=== PATIENT | male | born 1980 | race Caucasian/White ===

== ENCOUNTER 2017-06-26 05:19 | Observation (INO) | payer BC ==
[2017-06-26] MEDS ORDERED: cefTRIAXone 1 GM in Premix Bag 1 BAG IV ONE (05:20)
[2017-06-26] MEDS ORDERED: methylPREDNISolone Sodium Succinate 125 MG/2 ML SDV IVPUSH ONE (05:20)
--- NOTE | 2017-06-26 05:23 | EDM.PDOC ---
<Moris Thomas - Last Filed: 06/26/17 06:57> ED HPI GENERAL MEDICAL PROBLEM - General Stated Complaint: SWOLLEN UVULA Time Seen by Provider: 06/26/17 05:22 Source of Information: Reports: Patient - History of Present Illness INITIAL COMMENTS - FREE TEXT/NARRATIVE: HISTORY AND PHYSICAL: History of present illness: [ Patient arrives via EMS He has history of uvulitis in the past presents with complaint of swollen uvula EMS reports difficulty breathing however this is not exhibited while here in the emergency room airway appears patent however the patient is drooling unable to swallow his uvula is certainly inflamed and elongated. Patient is able to speak and answer questionnaire does not appear to be airway compromise no current fever the patient has vomited likely secondary to elongation of uvula stimulating gag reflex ] Review of systems: As per history of present illness and below otherwise all systems reviewed and negative. Past medical history: As per history of present illness and as reviewed below otherwise noncontributory. Surgical history: As per history of present illness and as reviewed below otherwise noncontributory. Social history: No reported history of drug or alcohol abuse. Family history: As per history of present illness and as reviewed below otherwise noncontributory. Physical exam: HEENT: Atraumatic, normocephalic, pupils reactive, negative for conjunctival pallor or scleral icterus, mucous membranes moist, throat clear, neck supple, nontender, trachea midline. Elongated uvula with inflammation and drooling Lungs: Clear to auscultation, breath sounds equal bilaterally, chest nontender. Heart: S1S2, regular, negative for clicks, rubs, or JVD. Abdomen: Soft, nondistended, nontender. Negative for masses or hepatosplenomegaly. Negative for costovertebral tenderness. Pelvis: Stable nontender. Genitourinary: Deferred. Rectal: Deferred. Extremities: Atraumatic, negative for cords or calf pain. Neurovascular unremarkable. Neuro: Awake, alert, oriented. Cranial nerves II through XII unremarkable. Cerebellum unremarkable. Motor and sensory unremarkable throughout. Exam nonfocal. Diagnostics: [CBC CMP UA CT soft tissue neck with contrast] Therapeutics: [Solu-Medrol 125 mg IV Rocephin 1 g IV] Patient will be signed out shift change with pending CT, lab is back essentially within normal limits, patient signed out to Dr. ramachandran for disposition and continued management Impression: [Uvulitis] Definitive disposition and diagnosis as appropriate pending reevaluation and review of above. - Related Data Allergies Allergy/AdvReac Type Severity Reaction Status Date / Time No Known Allergies Allergy Verified 06/26/17 05:36 Home Meds: Home Meds . [No Known Home Meds] 06/26/17 [History] Course - Vital Signs Last Recorded V/S: Last Vital Signs Temp 37.3 C 06/26/17 05:22 Pulse 103 H 06/26/17 06:50 Resp 20 06/26/17 06:50 BP 140/81 06/26/17 06:50 Pulse Ox 97 06/26/17 06:50 - Orders/Labs/Meds Orders: Active Orders 24 hr Category Date Time Status Soft Tissue Neck w Cont [CT] Stat Exams 06/26/17 05:21 Taken Sodium Chloride 0.9% [Normal Saline] 1,000 ml Med 06/26/17 05:30 Active IV STAT Medication Orders Sodium Chloride (Normal Saline) 1,000 mls @ 125 mls/hr IV STAT BRIGHT Last Admin: 06/26/17 05:24 Dose: 125 mls/hr Labs: Laboratory Tests 06/26/17 06/26/17 06/26/17 Range/Units 05:23 05:23 05:30 WBC 7.65 (4.0-11.0) K/uL RBC 5.28 (4.50-5.90) M/uL Hgb 15.8 (13.0-17.0) g/dL Hct 43.9 (38.0-50.0) % MCV 83.1 (80.0-98.0) fL MCH 29.9 (27.0-32.0) pg MCHC 36.0 (31.0-37.0) g/dL RDW Std Deviation 38.4 (28.0-62.0) fl RDW Coeff of Leslie 13 (11.0-15.0) % Plt Count 222 (150-400) K/uL MPV 9.50 (7.40-12.00) fL Neut % (Auto) 30.8 L (48.0-80.0) % Lymph % (Auto) 54.2 H (16.0-40.0) % Harrison % (Auto) 10.5 (0.0-15.0) % Eos % (Auto) 3.7 (0.0-7.0) % Baso % (Auto) 0.8 (0.0-1.5) % Neut # (Auto) 2.4 (1.4-5.7) K/uL Lymph # (Auto) 4.2 H (0.6-2.4) K/uL Harrison # (Auto) 0.8 (0.0-0.8) K/uL Eos # (Auto) 0.3 (0.0-0.7) K/uL Baso # (Auto) 0.1 (0.0-0.1) K/uL Nucleated RBC % 0.0 /100WBC Nucleated RBCs # 0 K/uL Sodium 141 (136-146) mmol/L Potassium 3.5 (3.5-5.1) mmol/L Chloride 109 (98-110) mmol/L Carbon Dioxide 20 L (21-31) mmol/L BUN 10 (6.0-23.0) mg/dL Creatinine 0.9 (0.6-1.5) mg/dL Est Cr Clr Drug Dosing 129.47 mL/min Estimated GFR (MDRD) > 60.0 ml/min Glucose 103 (60-110) mg/dL Calcium 9.4 (8.8-10.8) mg/dL Total Bilirubin 0.4 (0.1-1.5) mg/dL AST 33 (5-40) IU/L ALT 43 (8-54) IU/L Alkaline Phosphatase 77 (40-150) Total Protein 7.3 (6.0-8.0) g/dL Albumin 4.2 (3.5-5.0) g/dL Globulin 3.1 (2.0-3.5) g/dL Albumin/Globulin Ratio 1.4 (1.3-2.8) Urine Color YELLOW Urine Appearance CLEAR Urine pH 6.0 (5.0-8.0) Ur Specific [place] 1.020 (1.001-1.035) Urine Protein 30 (NEGATIVE) mg/dL Urine Glucose (UA) NEGATIVE (NEGATIVE) mg/dL Urine Ketones NEGATIVE (NEGATIVE) mg/dL Urine Occult Blood NEGATIVE (NEGATIVE) Urine Nitrite NEGATIVE (NEGATIVE) Urine Bilirubin NEGATIVE (NEGATIVE) Urine Urobilinogen 0.2 (<2.0) EU/dL Ur Leukocyte Esterase NEGATIVE (NEGATIVE) Urine RBC 0-2 (0-2/HPF) Urine WBC 0-2 (0-5/HPF) Ur Epithelial Cells RARE (NONE-FEW) Urine Bacteria RARE (NEGATIVE) Urine Mucus MODERATE (NONE-MOD) Meds: Medications Generic Name Dose Route Start Last Admin Trade Name Freq PRN Reason Stop Dose Admin Sodium Chloride 1,000 mls @ 125 mls/hr 06/26/17 05:30 06/26/17 05:24 Normal Saline IV 125 mls/hr STAT BRIGHT Administration Discontinued Medications Generic Name Dose Route Start Last Admin Trade Name Freq PRN Reason Stop Dose Admin Ceftriaxone Sodium/Dextrose 1 50 mls @ 100 mls/hr 06/26/17 05:20 06/26/17 05: 25 gm/ Premix IV 06/26/17 05:49 100 mls/hr ONETIME ONE Administration Iopamidol 200 ml 06/26/17 06:18 06/26/17 06:24 Isovue Multipack-370 (76%) IVPUSH 06/26/17 06:19 75 ml ONETIME STA Administration Methylprednisolone Sodium Succinate 125 mg 06/26/17 05:20 06/26/17 05:25 Solu-Medrol IVPUSH 06/26/17 05:21 125 mg ONETIME ONE Administration Departure - Departure Disposition: Home, Self-Care 01 Clinical Impression: Pneumonia, Uvulitis, Sinusitis - Discharge Information Referrals: Quinten Schneider MD [Primary Care Provider] - Additional Instructions: The following information is given to patients seen in the emergency department who are being discharged to home. This information is to outline your options for follow-up care. We provide all patients seen in our emergency department with a follow-up referral. The need for follow-up, as well as the timing and circumstances, are variable depending upon the specifics of your emergency department visit. If you don't have a primary care physician on staff, we will provide you with a referral. We always advise you to contact your personal physician following an emergency department visit to inform them of the circumstance of the visit and for follow-up with them and/or the need for any referrals to a consulting specialist. The emergency department will also refer you to a specialist when appropriate. This referral assures that you have the opportunity for followup care with a specialist. All of these measure are taken in an effort to provide you with optimal care, which includes your followup. Under all circumstances we always encourage you to contact your private physician who remains a resource for coordinating your care. When calling for followup care, please make the office aware that this follow-up is from your recent emergency room visit. If for any reason you are refused follow-up, please contact the [facility] emergency department at and asked to speak to the emergency department charge nurse. Augmentin is prescribed Motrin/Tylenol as directed push fluids follow primary medical doctor 1-2 days return as needed as discussed <Bib Ramachandran - Last Filed: 06/26/17 08:56> ED ROS GENERAL - Review of Systems Review Of Systems: ROS reveals no pertinent complaints other than HPI. ED EXAM, GENERAL - Physical Exam Exam: See Below (See dictation) Course - Vital Signs Text/Narrative:: Patient's emergency department course has been unremarkable CT demonstrates moderate amount of fluid and mucosal thickening in left maxillary sinus some mild groundglass opacity in the right upper lobe will be was enlarged with no evidence of abscess.Patient will be discharged on Augmentin be taking as prescribed with diagnosis of #1 sinusitis #2 pneumonia #30 uvulitis Departure - Departure Time of Disposition: 08:55 Condition: Good
[2017-06-26] MEDS: Sodium Chloride 0.9% 1,000 ML IV SCH ×3 (05:24→22:52)
[2017-06-26 05:54] LABS: CHLORIDE,CL 109 mmol/L (98-110); SODIUM,NA 141 mmol/L (136-146)
[2017-06-26] MEDS ORDERED: Iopamidol 755 MG/ML 200 ML Multipack Bottle IVPUSH STA (06:18)
[2017-06-26] MEDS ORDERED: Benzocaine 20% Topical Spray UD MUCMEM ONE ×2 (09:07→09:23)
[2017-06-26] MEDS ORDERED: Ondansetron 4 MG/2 ML SDV IVPUSH PRN (12:55)
--- NOTE | 2017-06-26 13:06 | PCM.HP ---
H&P History of Present Illness - General Admit Problem/Dx: Admission Diagnosis/Problem Admission Diagnosis/Problem Uvulitis - History of Present Illness Initial Comments - Free Text/Narative: 36 yo male who presents with one day history swollen uvula. He reports sinus congestion for past two weeks which had been clearing up. He woke up this morning and his uvula was swollen and laying on his tongue. It is causing him to spit and gag which is making swallowing difficult. He denies any shortness of breath or wheezing. He denies any allergies. He denies any fevers, sore throat or cough. In the ED he was noted to have a CT neck which reported enlarged uvula with suspected inflammatory prcess/uvulitis, airway is widely patent, Right upper lobe ground-glass opacities. - Related Data Allergies/Adverse Reactions: Allergies Allergy/AdvReac Type Severity Reaction Status Date / Time No Known Allergies Allergy Verified 06/26/17 05:36 Home Medications: Home Meds . [No Known Home Meds] 06/26/17 [History] Past Medical History - Past Health History Medical/Surgical History: Denies Medical/Surgical History HEENT History: Reports: None Cardiovascular History: Reports: None Respiratory History: Reports: None Gastrointestinal History: Reports: None Genitourinary History: Reports: None Musculoskeletal History: Reports: None Psychiatric History: Reports: None Endocrine/Metabolic History: Reports: None Hematologic History: Reports: None Oncologic (Cancer) History: Reports: None - Infectious Disease History Infectious Disease History: Reports: None Social & Family History - Family History Family Medical History: Noncontributory - Tobacco Use Smoking Status *Q: Never Smoker Second Hand Smoke Exposure: No - Caffeine Use Caffeine Use: Reports: None - Alcohol Use Days Per Week of Alcohol Use: 2 Number of Drinks Per Day: 1 Total Drinks Per Week: 2 Date of Last Drink: 06/25/17 Time of Last Drink: 21:00 - Recreational Drug Use Recreational Drug Use: No H&P Review of Systems - Review of Systems: Review Of Systems: ROS reveals no pertinent complaints other than HPI. Exam - Exam Exam: See Below - Vital Signs Vital Signs: Last Vital Signs Temp 37.3 C 06/26/17 05:22 Pulse 103 H 06/26/17 06:50 Resp 20 06/26/17 06:50 BP 140/81 06/26/17 06:50 Pulse Ox 97 06/26/17 06:50 Weight: 124.2 kg - Exam General: Alert, Oriented HEENT: Other (uvula enlarged sitting on back of tongue, no mass seen, no erythema or exudates, airway is patent) Lungs: Clear to Auscultation, Normal Respiratory Effort Cardiovascular: Regular Rate, Regular Rhythm GI/Abdominal Exam: Soft, Non-Tender Extremities: Non-Tender, No Pedal Edema Skin: Warm, Dry, Intact - Patient Data Result Diagrams: 06/27/17 06:11 06/27/17 06:11 Darwin Results Last 24 hrs: Microbiology 06/26/17 12:30 Group A Streptococcus Rapid Screen - Final Throat NEGATIVE STREP A SCREEN *Q Meaningful Use (ADM) - VTE *Q VTE Criteria *Q: - Stroke *Q Stroke Criteria *Q: - AMI *Q AMI Criteria *Q: Problem List Initiated/Reviewed/Updated: Yes Orders Last 24hrs: Active Orders 24 hr Category Date Time Status Antiembolic Devices [RC] PER UNIT ROUTINE Care 06/26/17 12:57 Ordered Oxygen Therapy [RC] PRN Care 06/26/17 12:55 Ordered Up ad Damaris [RC] ASDIRECTED Care 06/26/17 12:55 Ordered VTE/DVT Education [RC] PER UNIT ROUTINE Care 06/26/17 12:55 Ordered Vital Signs [RC] Q4H Care 06/26/17 12:55 Ordered Clear Liquid Diet [DIET] Diet 06/26/17 Breakfast Ordered CXR [Chest 2V] [CR] Routine Exams 06/26/17 12:39 Ordered BASIC METABOLIC PANEL,BMP [CHEM] AM Lab 06/27/17 05:11 Ordered CBC WITH AUTO DIFF [HEME] AM Lab 06/27/17 05:11 Ordered CULTURE STREP A CONFIRMATION [RM] Routine Lab 06/26/17 12:30 Results INFLUENZA A+B AG SCREEN [RM] Routine Lab 06/26/17 12:29 Ordered STREP SCRN A RAPID W CULT CONF [RM] Routine Lab 06/26/17 12:29 Ordered Ondansetron [Zofran] Med 06/26/17 12:55 Ordered 4 mg IVPUSH Q4H PRN Sequential Compression Device [OM.PC] Per Unit Routine Oth 06/26/17 12:56 Ordered Resuscitation Status Routine Resus Stat 06/26/17 12:55 Ordered Medication Orders Sodium Chloride (Normal Saline) 1,000 mls @ 125 mls/hr IV STAT BRIGHT Last Admin: 06/26/17 05:24 Dose: 125 mls/hr Ondansetron HCl (Zofran) 4 mg IVPUSH Q4H PRN PRN Reason: Nausea Assessment/Plan Comment:: 36 yo male admitted uvulitis. Process may or may not be infectious. We will check CXR. Patient has received Rocephin and solumedrol. We will continue to monitor on floor with pulse oximetry
[2017-06-26] MEDS ORDERED: Azithromycin 500 MG in Sodium Chloride 0.9% 250 ML IV SCH (13:15)
[2017-06-27] MEDS: Sodium Chloride 0.9% 1,000 ML IV SCH (05:58)
[2017-06-27] MEDS ORDERED: cefTRIAXone 1 GM in Premix Bag 1 BAG IV SCH (06:00)
[2017-06-27 06:44] LABS: CHLORIDE,CL 110 mmol/L (98-110); SODIUM,NA 140 mmol/L (136-146)
[2017-06-27] MEDS ORDERED: cefTRIAXone 1,000 MG VIAL IVPUSH SCH (13:04)
--- NOTE | 2017-06-27 14:07 | PCM.DCSUM1 ---
Discharge Summary - Discharge Data Discharge Date: 06/27/17 Discharge Disposition: Home, Self-Care 01 Condition: Good - Patient Summary/Data Hospital Course: 36 yo male who presents with one day history swollen uvula. He reported no difficulty breathing but did have difficulty swallowing which resulted in admission for IV antibitoics for isolated uvulitis. CT neck reported enlarged uvula with suspected inflammatory process/uvulitis, airway is widely patent, Right upper lobe ground-glass opacities. CXR reported vague small nodular opacity in the righ mid lung projection between the 3rd and 4th anteior ribs measuring approximately 1 cm. He was treated with Rocephin and azithromycin. The following day uvula swelling had improved and he had not problems swallowing. He was discharged home on Augmentin and instructed to have follow up CXR in one month. He also plans on following up with an Director Food Safety. - Discharge Plan Prescriptions/Med Rec: Amoxicillin/Potassium Clav [Augmentin 875-125 Tablet] 1 each PO Q12H #14 tablet Home Medications: Home Meds Amoxicillin/Potassium Clav [Augmentin 875-125 Tablet] 1 each PO Q12H #14 tablet 06/27/17 [Rx] Patient Handouts: Sinusitis, Adult, [id number], Community-Acquired Pneumonia , Adult, [id number], Uvulitis Forms: ED Department Discharge Referrals: Quinten Schneider MD [Primary Care Provider] - - Patient Data Vitals - Most Recent: Last Vital Signs Temp 36.2 C 06/27/17 11:34 Pulse 82 06/27/17 11:34 Resp 14 06/27/17 11:34 BP 131/81 06/27/17 11:34 Pulse Ox 99 06/27/17 11:34 Weight - Most Recent: 124.2 kg I&O - Last 24 hours: Intake & Output 06/26/17 06/27/17 06/27/17 22:59 06:59 14:59 Intake Total 1150 3627 Output Total 1050 Balance 1150 7337 Lab Results - Last 24 hrs: Laboratory Results - last 24 hr 06/27/17 06/27/17 Range/Units 06:11 06:11 WBC 13.40 H (4.0-11.0) K/uL RBC 4.59 (4.50-5.90) M/uL Hgb 14.2 (13.0-17.0) g/dL Hct 38.9 (38.0-50.0) % MCV 84.7 (80.0-98.0) fL MCH 30.9 (27.0-32.0) pg MCHC 36.5 (31.0-37.0) g/dL RDW Std Deviation 39.8 (28.0-62.0) fl RDW Coeff of Leslie 13 (11.0-15.0) % Plt Count 189 (150-400) K/uL MPV 9.10 (7.40-12.00) fL Neut % (Auto) 78.0 (48.0-80.0) % Lymph % (Auto) 13.9 L (16.0-40.0) % [place] % (Auto) 8.0 (0.0-15.0) % Eos % (Auto) 0.0 (0.0-7.0) % Baso % (Auto) 0.1 (0.0-1.5) % Neut # (Auto) 10.5 H (1.4-5.7) K/uL Lymph # (Auto) 1.9 (0.6-2.4) K/uL [place] # (Auto) 1.1 H (0.0-0.8) K/uL Eos # (Auto) 0.0 (0.0-0.7) K/uL Baso # (Auto) 0.0 (0.0-0.1) K/uL Nucleated RBC % 0.0 /100WBC Nucleated RBCs # 0 K/uL Sodium 140 (136-146) mmol/L Potassium 4.1 (3.5-5.1) mmol/L Chloride 110 (98-110) mmol/L Carbon Dioxide 20 L (21-31) mmol/L BUN 13 (6.0-23.0) mg/dL Creatinine 0.8 (0.6-1.5) mg/dL Est Cr Clr Drug Dosing 145.65 mL/min Estimated GFR (MDRD) > 60.0 ml/min Glucose 112 H (60-110) mg/dL Calcium 8.6 L (8.8-10.8) mg/dL PABLO Results - Last 24 hrs: Microbiology 06/26/17 12:30 Influenza Type A Antigen Screen - Final Nasopharyngeal Swab - Nare, Right NEGATIVE INFLUENZA A VIRUS AG Influenza Type B Antigen Screen - Final NEGATIVE INFLUENZA B VIRUS AG 06/26/17 12:30 Group A Streptococcus Rapid Screen - Final Throat NEGATIVE STREP A SCREEN Med Orders - Current: Current Medications Sodium Chloride (Normal Saline) 1,000 mls @ 125 mls/hr IV STAT [facility] Last Admin: 06/27/17 05:58 Dose: 125 mls/hr Azithromycin 500 mg/ Sodium (Chloride) 250 mls @ 250 mls/hr IV Q24H [facility] Last Admin: 06/26/17 14:30 Dose: 250 mls/hr Ceftriaxone Sodium/Dextrose 1 (gm/ Premix) 50 mls @ 100 mls/hr IV Q24H [facility] Last Admin: 06/27/17 05:58 Dose: 100 mls/hr Ondansetron HCl (Zofran) 4 mg IVPUSH Q4H PRN PRN Reason: Nausea Discontinued Medications Benzocaine (Hurricaine One 20%) Confirm Administered Dose 1 each MUCMEM .STK- MED ONE Stop: 06/26/17 09:08 Last Admin: 06/26/17 09:26 Dose: Not Given Benzocaine (Hurricaine One 20%) 1 each MUCMEM ONETIME ONE Stop: 06/26/17 09:24 Last Admin: 06/26/17 09:26 Dose: 1 each Ceftriaxone Sodium (Rocephin) 1,000 mg IVPUSH Q24H [facility] Ceftriaxone Sodium/Dextrose 1 (gm/ Premix) 50 mls @ 100 mls/hr IV ONETIME ONE Stop: 06/26/17 05:49 Last Admin: 06/26/17 05:25 Dose: 100 mls/hr Iopamidol (Isovue Multipack-370 (76%)) 200 ml IVPUSH ONETIME STA Stop: 06/26/17 06:19 Last Admin: 06/26/17 06:24 Dose: 75 ml Methylprednisolone Sodium Succinate (Solu-Medrol) 125 mg IVPUSH ONETIME ONE Stop: 06/26/17 05:21 Last Admin: 06/26/17 05:25 Dose: 125 mg *Q Meaningful Use (DIS) - VTE *Q VTE Criteria *Q: - Stroke *Q Stroke Criteria *Q: - AMI *Q AMI Criteria *Q:
[2017-06-27] MEDS ORDERED: Amoxicillin/Clavulanate K 875-125 MG Tab PO SCH (21:00)
--- NOTE | 2017-06-28 19:14 | CT ---
EXAM DATE: 06/26/17 PATIENT'S AGE: 36 Patient: MILAGROS GALLAGHER Facility: [place], [place] Site . Site : 1980 Study: CT ST Neck [id number]/31/2017 6:57:33 AM Ordering Physician: Addie Subramanian Final Report: Indication: Uvulitis and profuse drooling. Technique: CT soft tissue neck with IV contrast was acquired from the skullbase to the thoracic inlet. Comparison: No prior studies available for comparison at this institution. Findings: Visualized posterior fossa structures within normal limits. The thyroid, submandibular and parotid glands are within normal limits. The cervical airway is widely patent. Vallecula and piriform sinuses are within normal limits. The palatine tonsils are mildly prominent. The uvula is enlarged and lower in density than typical correlating with the clinically suspected inflammatory process/uvulitis. Possibility of a mass involving the uvula cannot be excluded. Few small to upper limits of normal upper neck lymph nodes likely reactive in nature. No suspicious fluid collection. There is anterior translation of the left mandibular condyle as if in the jaw open position however the left TMJ is positioned in the jaw closed position. Large polyp versus retention cyst and high-density material along the floor of the left maxillary sinus, probably representing chronic bone remodeling from chronic sinus disease. There is anterior translation of the left mandibular condyle as if in the jaw open position however the left TMJ is positioned in the jaw closed position. Please correlate for TMJ dysfunction or dislocation. Mild ground-glass opacity in the right upper lobe. Impression: 1. The uvula is enlarged and lower in density than typical correlating with the clinically suspected inflammatory process/uvulitis. Possibility of a mass involving the uvula or cannot be excluded. Direct visualization is recommended. The airway is widely patent. 2. Right upper lobe ground-glass opacities may be infectious or inflammatory etiology with aspiration a possibility in the setting of drooling. 3. No pathologically enlarged lymph nodes. 4. No drainable fluid collections are identified. 5. Large polyp versus retention cyst and high-density material along the floor of the left maxillary sinus, probably representing chronic bone remodeling from chronic sinus disease. 6. There is anterior translation of the left mandibular condyle as if in the jaw open position however the left TMJ is positioned in the jaw closed position. Please correlate for TMJ dysfunction or dislocation. Please note that all CT scans at this facility use dose modulation, iterative reconstruction, and/or weight-based dosing when appropriate to reduce radiation dose to as low as reasonably achievable. Dictated by Kurtis Vasquez MD @ Jun 26 2017 8:50AM (Electronic Signature) Report Signed by Proxy. MTDD
--- NOTE | 2017-06-28 19:40 | CR ---
EXAM DATE: 06/26/17 PATIENT'S AGE: 36 Patient: MILAGROS GALLAGHER Facility: [place], [place] Site . Site : 1980 Study: XRay Chest [id number]/31/2017 2:02:57 PM Ordering Physician: Viridiana Dimas Final Report: INDICATION: Pneumonia. Technique: PA and lateral chest x-ray. Findings: Heart size normal. Vague suggestion of a small nodular opacity in the right mid lung projected between the 3rd and 4th anterior ribs measures approximately 1 cm. Cannot exclude a vague pulmonary nodule in this location. Comparison with prior chest x-rays or followup chest x-ray suggested to reassess. No infiltrate or consolidation in either lung to suggest pneumonia. Chest otherwise negative. Dictated by Cyrus Montanez MD @ Jun 26 2017 2:47PM (Electronic Signature) Report Signed by Proxy. ANALY
== END 2017-06-27 14:40 | disposition home or self-care (01) ==
LOC: MW.ED 05:19 → MW.MS 09:15
PROVIDERS: ADMIT Internal Medicine; ATTEND Internal Medicine
DX: K12.2 Cellulitis and abscess of mouth (principal)
CPT/HCPCS: 36415; 70491; 71020; 80048; 80053; 81001; 85025; 87081; 87804; 87880; 96361; 96365; 99284; A9270; J0456; J0696; J2930; J7040; J7050; Q9967; 96366; 96367; G0378

== ENCOUNTER 2023-05-11 14:15 | Emergency (ER) | payer BC, OTHER | END 2023-05-11 16:01 | disposition home or self-care (01) | LOC: MW.ED 14:15 | DX: T40.411A Poisoning by fentanyl or fentanyl analogs, accidental (unintentional), initial encounter (principal) | CPT/HCPCS: 71045; 71045-26; 93005; 93010; 99283; 99284 ==